=== PATIENT | female | born 1955 | race Hispanic/Latino ===

== ENCOUNTER 2018-08-18 08:59 | Emergency (ER) | payer OTHER, MEDICARE ==
[2018-08-18] MEDS ORDERED: IBUPROFEN 400 MG TABLET ONE (10:32)
[2018-08-18] MEDS ORDERED: HYDROCODONE/ACETAMINOPHEN 10/325 MG TAB ONE (10:33)
[2018-08-18] MEDS ORDERED: IBUPROFEN 200 MG TAB ONE (10:33)
== END 2018-08-18 12:03 | disposition home or self-care (01) ==
LOC: EDH 08:59
DX: S39.012A Strain of muscle, fascia and tendon of lower back, initial encounter (principal); S39.91XA Unspecified injury of abdomen, initial encounter; I10 Essential (primary) hypertension; E78.5 Hyperlipidemia, unspecified; E11.9 Type 2 diabetes mellitus without complications; Z88.5 Allergy status to narcotic agent; Z90.49 Acquired absence of other specified parts of digestive tract; Z98.890 Other specified postprocedural states; V59.49XA Driver of pick-up truck or van injured in collision with other motor vehicles in traffic accident, initial encounter; Y93.89 Activity, other specified; Y92.410 Unspecified street and highway as the place of occurrence of the external cause; Y99.8 Other external cause status
CPT/HCPCS: 72072; 72100